=== PATIENT | female | born 1980 | race Caucasian/White ===

== ENCOUNTER 2016-12-30 06:07 | Day surgery (SDC) | payer BC ==
[2016-12-30] MEDS ORDERED: Lactated Ringers 1,000 ML IV SCH (06:30)
[2016-12-30] MEDS ORDERED: DIPRIVAN 200 MG/20 ML IV ONE (07:49)
[2016-12-30] MEDS ORDERED: Versed 2 MG/2 ML Injection IV ONE (07:49)
[2016-12-30 08:56] VITALS: BP 131/86; PULSE 68; O2SAT 99
--- NOTE | 2016-12-30 09:04 | OP ---
SURGERY DATE: 12/30/16 SURGERY TIME: 716 PREOPERATIVE DIAGNOSIS: 1. EPIGASTRIC PAIN. POSTOPERATIVE DIAGNOSIS: 1. MILD GASTRITIS. PROCEDURE: 1. Esophagogastroduodenoscopy with biopsy. SURGEON: Dr. Connors. ANESTHESIA: MAC, medications given by the Anesthesia Department. BRIEF HISTORY: The patient is a 36 y/o WF patient presenting now for endoscopic evaluation due to the presence of epigastric pain. The patient was noted to be taking ibuprofen routinely. The patient was felt to need to have endoscopic evaluation. She was appraised of the risks of the procedure including the risk of perforation, phlebitis, untoward reaction to medication, bleeding, and missed lesions. The patient verbalized her understanding and desired to have the procedure performed. DESCRIPTION OF PROCEDURE: The patient was given the medications by the Anesthesia Department. She had continuous pulse oximetry, ECG monitoring, intermittent BP monitoring, and end tidal CO2 monitoring during the examination. She was placed in the left lateral decubitus position. A bite block was placed and the flexible Olympus gastroscope was used to intubate the oropharynx. A view of the larynx was obtained and was normal. The scope was easily introduced in the esophagus which appeared to be normal throughout its length. The stomach was entered where normal gastric rugal folds were seen and these distended nicely with the insufflation of air. The scope was passed along the greater curvature of the stomach to the antrum. The pylorus was encountered and intubated. The duodenum was inspected and found to be normal. The scope was withdrawn towards the stomach again. A retroflex view was obtained of the lesser curvature, fundus, and cardia regions of the stomach and these appeared to be normal. The scope was then redirected towards the gastric antrum. Biopsies were obtained to rule out the presence of Helicobacter pylori type organisms. The scope was then removed from the patient who tolerated the procedure well and was sent back to outpatient recovery in good condition.
== END 2016-12-30 08:40 | disposition home or self-care (01) ==
LOC: SDC 06:07
PROVIDERS: ATTEND Family Medicine
PROC: 0DB68ZX Excision of Stomach, Via Natural or Artificial Opening Endoscopic, Diagnostic (ICD-10-PCS; principal; 2016-12-30)
DX: K29.70 Gastritis, unspecified, without bleeding (principal); R10.13 Epigastric pain
CPT/HCPCS: 00740; 36415; 88305; 88312; J2250; J2704

== ENCOUNTER 2017-11-06 09:00 | Observation (INO) | payer BC ==
[2017-11-06] MEDS ORDERED: MEFOXIN 2 GM PREMIX** 2 GM/50 ML ML IV ONE (09:01)
[2017-11-06] MEDS ORDERED: TORAdol 30 mg Injection IV ONE (09:25)
[2017-11-06] MEDS ORDERED: Sodium Chloride 0.9% 1000 ML 1,000 ML IV STA (09:25)
[2017-11-06] MEDS ORDERED: Zofran 4 MG/2 ML VIAL IV ONE ×2 (09:25→14:14)
--- NOTE | 2017-11-06 09:29 | ERPHSYRPT ---
- History of Present Illness Time Seen by Provider: 11/06/17 09:22 Historian: patient Exam Limitations: no limitations Patient Subjective Stated Complaint: Pt states "I started to have lower right abdominal pain last night and this morning it is worse and my right lower back now hurts." Triage Nursing Assessment: Pt alert and oriented X 3, skin pwd. Pt ambulates with an upright steady gait, able to speak in clear full sentences. pt has tenderness noted to right lower quadrant on palpation and release Physician History: 37-year-old white female arrives with complaint of right lower quadrant pain radiating to her back nausea symptoms since last night. Patient apparently presented to the [facility] and was referred to the emergency room. Past medical history includes gastritis. Past surgical history includes tubal ligation. Timing/Duration: yesterday Activities at Onset: none Quality: cramping, sharpness Abdominal Pain Onset Location: RLQ Pain Radiation: back Severity of Pain-Max: moderate Severity of Pain-Current: moderate Modifying Factors: Improves With: other (nausea). Worsens With: analgesics, antacids, breathing, coughing, defecating, eating, exercise, lying down, movement, palpation, rest, urinating, vomiting, position, walking Associated Symptoms: back (pain radiates to the right lower back), nausea, No chest pain, No diaphoresis, No diarrhea, No fever/chills, No fatigue, No headache, No heartburn, No loss of appetite, No neck pain, No rash, No shortness of breath, No syncope, No vomiting, No weakness Previous symptoms: no prior history Allergies/Adverse Reactions: amoxicillin Allergy (Severe, Verified 11/06/17 09:20) Swelling Home Medications: Ibuprofen 600 mg PO BID PRN PRN 12/30/16 [History] Hx Tetanus, Diphtheria Vaccination/Date Given: No Hx Influenza Vaccination/Date Given: No Hx Pneumococcal Vaccination/Date Given: No Immunizations Up to Date: Yes - Review of Systems Constitutional: No Fever, No Chills Eyes: No Symptoms Ears, Nose, & Throat: No Symptoms Respiratory: No Cough, No Dyspnea Cardiac: No Chest Pain, No Edema, No Syncope Abdominal/Gastrointestinal: Abdominal Pain (right lower quadrant pain), Nausea, No Vomiting, No Diarrhea, No Constipation, No Hematemesis, No Hematochezia, No Melena, No Dysphagia, No Appetite Changes Genitourinary Symptoms: No Dysuria, No Frequency, No Hematuria, No Hesitancy, No Incontinence, No Urgency, No Urinary Retention, No Flank Pain, No Menorrhagia , No , No Vaginal Bleeding, No Vaginal Discharge, No Vaginal Itching Musculoskeletal: Back Pain (pain radiates to right lower back), No Arthralgias, No Neck Pain, No Deformity, No Fall, No Injury, No Joint Redness, No Joint Pain , No Joint Swelling, No Myalgias Skin: No Rash Neurological: No Dizziness, No Focal Weakness, No Sensory Changes Psychological: No Symptoms Endocrine: No Symptoms All Other Systems: Reviewed and Negative - Past Medical History Pertinent Past Medical History: Yes Neurological History: No Pertinent History ENT History: No Pertinent History Cardiac History: No Pertinent History Respiratory History: No Pertinent History Endocrine Medical History: No Pertinent History Musculoskeletal History: No Pertinent History GI Medical History: Other History: No Pertinent History Psycho-Social History: No Pertinent History Female Reproductive Disorders: No Pertinent History Other Medical History: abd pain, nausea - Past Surgical History Past Surgical History: Yes Neuro Surgical History: No Pertinent History Cardiac: No Pertinent History Respiratory: No Pertinent History Gastrointestinal: No Pertinent History Genitourinary: No Pertinent History Musculoskeletal: No Pertinent History Female Surgical History: Tubal Ligation - Social History Smoking Status: Never smoker Exposure to second hand smoke: Yes Drug Use: none Patient Lives Alone: No - Female History Hx Last Menstrual Period: 10/08/2017 Hx Now: No - Nursing Vital Signs Nursing Vital Signs: Initial Vital Signs Temperature 97.6 F 11/06/17 09:09 Pulse Rate 99 H 11/06/17 09:09 Respiratory Rate 18 11/06/17 09:09 Blood Pressure 140/85 11/06/17 09:09 O2 Sat by Pulse Oximetry 98 11/06/17 09:09 Pain Scale Pain Intensity 4 - Physical Exam General Appearance: mild distress, alert Eye Exam: PERRL/EOMI, eyes nml inspection Ears, Nose, Throat Exam: normal ENT inspection, pharynx normal, moist mucous membranes Neck Exam: normal inspection, non-tender, supple, full range of motion Respiratory Exam: normal breath sounds, lungs clear, No respiratory distress Cardiovascular Exam: regular rate/rhythm, normal heart sounds Gastrointestinal/Abdomen Exam: soft, tenderness (right lower quadrant tenderness ), No normal bowel sounds, No distention, No mass, No guarding, No ecchymosis, No pulsatile mass, No rebound, No hernia, No hepatomegaly, No organomegaly, No splenomegaly Back Exam: normal inspection, normal range of motion, No CVA tenderness, No vertebral tenderness Extremity Exam: normal inspection, normal range of motion, pelvis stable Neurologic Exam: alert, oriented x 3, cooperative, normal mood/affect, nml cerebellar function, sensation nml, No motor deficits Skin Exam: normal color, warm, dry SpO2 Interpretation: normal (98%) SpO2: 98 Oxygen Delivery: Room Air - Course Nursing assessment & vital signs reviewed: Yes - CT Exams Abdomen/Pelvis CT Interpretation: Discussed w/radiologist (acute appendicitis no perforation tiny appendicolith) Ordered Tests: Active Orders 24 hr Category Date Time Status IV Insertion STAT Care 11/06/17 09:25 Active ABDOMEN AND PELVIS W CONTRAST [CT] Stat Exams 11/06/17 10:08 Completed AMYLASE Stat Lab 11/06/17 09:30 Completed CBC W DIFF Stat Lab 11/06/17 09:30 Completed CMP Stat Lab 11/06/17 09:30 Completed HCG QUALITATIVE,SERUM Stat Lab 11/06/17 09:30 Completed LIPASE Stat Lab 11/06/17 09:30 Completed UA W/ MICROSCOPIC Stat Lab 11/06/17 09:30 Completed Medication Summary Discontinued Medications Generic Name Dose Route Start Last Admin Trade Name Freq PRN Reason Stop Dose Admin Bupivacaine HCl Confirm 11/06/17 12:08 Sensorcaine 0.25% 10 Ml Administered 11/06/17 12:09 Dose 10 ml .ROUTE .STK-MED ONE Sodium Chloride 1,000 mls @ 999 mls/hr 11/06/17 09:25 11/06/17 09:34 Sodium Chloride 0.9% 1000 Ml IV 11/06/17 10:25 999 mls/hr .Q1H1M STA Administration Sodium Chloride Confirm 11/06/17 09:33 Sodium Chloride 0.9% 1000 Ml Administered 11/06/17 09:34 Dose 1,000 mls @ ud .ROUTE .STK-MED ONE Cefoxitin Sodium 2 gm in 50 mls @ ud 11/06/17 09:01 Mefoxin 2 Gm Premix IV 11/06/17 09:02 .STK-MED ONE Lactated Ringer's Confirm 11/06/17 11:40 Lactated Ringers Administered 11/06/17 11:41 Dose 1,000 mls @ ud IV .STK-MED ONE Lactated Ringer's Confirm 11/06/17 12:08 Lactated Ringers Administered 11/06/17 12:09 Dose 1,000 mls @ ud IV .STK-MED ONE Ketorolac Tromethamine 30 mg 11/06/17 09:25 11/06/17 09:34 Toradol 30 Mg Injection IV 11/06/17 09:26 30 mg STAT ONE Administration Ketorolac Tromethamine Confirm 11/06/17 09:33 Toradol 30 Mg Injection Administered 11/06/17 09:34 Dose 30 mg .ROUTE .STK-MED ONE Morphine Sulfate 4 mg 11/06/17 10:10 11/06/17 10:38 Morphine Sulfate 4 Mg Inj IV 11/06/17 10:11 4 mg STAT ONE Administration Morphine Sulfate Confirm 11/06/17 10:32 Morphine Sulfate 4 Mg Inj Administered 11/06/17 10:33 Dose 4 mg .ROUTE .STK-MED ONE Ondansetron HCl 4 mg 11/06/17 09:25 11/06/17 09:34 Zofran 4 Mg/2 Ml Vial IV 11/06/17 09:26 4 mg STAT ONE Administration Ondansetron HCl Confirm 11/06/17 09:33 Zofran 4 Mg/2 Ml Vial Administered 11/06/17 09:34 Dose 4 mg .ROUTE .STK-MED ONE Lab/Rad Data: Laboratory Result Diagrams 11/06/17 09:30 11/06/17 09:30 Laboratory Results 11/06/17 11/06/17 11/06/17 Range/Units 09:30 09:30 09:30 WBC 14.1 H (4.0-10.5) K/mm3 RBC 4.30 (4.1-5.4) M/mm3 Hgb 13.3 (12.0-16.0) gm/dl Hct 39.8 (35-47) % MCV 92.6 (78-100) fl MCH 30.9 (26-32) pg MCHC 33.4 (32-36) g/dl RDW 12.7 (11.5-14.0) % Plt Count 233 (150-450) K/mm3 MPV 10.9 H (6-9.5) fl Gran % 77.3 H (36.0-66.0) % Lymphocytes % 9.6 L (24.0-44.0) % Monocytes % 9.0 (0.0-12.0) % Eosinophils % 4.0 (0.00-5.0) % Basophils % 0.1 (0.0-0.4) % Basophils # 0.02 (0-0.4) Sodium 137 (136-145) mEq/L Potassium 4.6 (3.5-5.1) mEq/L Chloride 103 (98-107) mEq/L Carbon Dioxide 27.1 (21-32) mEq/L Anion Gap 11.7 (5-15) MEQ/L BUN 16 (9-20) mg/dL Creatinine 0.77 (0.55-1.30) mg/dl Estimated GFR > 60 ML/MIN Glucose 105 (70-110) MG/DL Calcium 9.0 (8.5-10.1) mg/dL Total Bilirubin 0.70 (0.2-1.0) mg/dL AST 19 (15-37) U/L ALT 21 (12-78) U/L Alkaline Phosphatase 97 (46-116) U/L Serum Total Protein 7.6 (6.4-8.2) gm/dL Albumin 3.6 (3.4-5.0) g/dL Amylase 64 (25-115) U/L Lipase 163 (73-393) U/L Serum , Qual NEGATIVE (Negative) Ur Collection Type Urine Color (YELLOW) Urine Appearance (CLEAR) Urine pH (5-6) Ur Specific [place] (1.005-1.025) Urine Protein (Negative) Urine Ketones (NEGATIVE) Urine Blood (0-5) Chago/ul Urine Nitrite (NEGATIVE) Urine Bilirubin (NEGATIVE) Urine Urobilinogen (0-1) mg/dL Ur Leukocyte Esterase (NEGATIVE) Urine Microscopic RBC (0-2) /HPF Urine Microscopic WBC (0-5) /HPF Ur Epithelial Cells (FEW) /HPF Urine Bacteria (NEGATIVE) /HPF Urine Mucus (NEGATIVE) /HPF Urine Culture Reflexed (NO) Urine Glucose (NEGATIVE) mg/dL Specimen Received 11/06/17 Range/Units 09:30 WBC (4.0-10.5) K/mm3 RBC (4.1-5.4) M/mm3 Hgb (12.0-16.0) gm/dl Hct (35-47) % MCV (78-100) fl MCH (26-32) pg MCHC (32-36) g/dl RDW (11.5-14.0) % Plt Count (150-450) K/mm3 MPV (6-9.5) fl Gran % (36.0-66.0) % Lymphocytes % (24.0-44.0) % Monocytes % (0.0-12.0) % Eosinophils % (0.00-5.0) % Basophils % (0.0-0.4) % Basophils # (0-0.4) Sodium (136-145) mEq/L Potassium (3.5-5.1) mEq/L Chloride (98-107) mEq/L Carbon Dioxide (21-32) mEq/L Anion Gap (5-15) MEQ/L BUN (9-20) mg/dL Creatinine (0.55-1.30) mg/dl Estimated GFR ML/MIN Glucose (70-110) MG/DL Calcium (8.5-10.1) mg/dL Total Bilirubin (0.2-1.0) mg/dL AST (15-37) U/L ALT (12-78) U/L Alkaline Phosphatase (46-116) U/L Serum Total Protein (6.4-8.2) gm/dL Albumin (3.4-5.0) g/dL Amylase (25-115) U/L Lipase (73-393) U/L Serum , Qual (Negative) Ur Collection Type CCMS Urine Color YELLOW (YELLOW) Urine Appearance HAZY (CLEAR) Urine pH 8.0 (5-6) Ur Specific [place] 1.005 (1.005-1.025) Urine Protein NEGATIVE (Negative) Urine Ketones NEGATIVE (NEGATIVE) Urine Blood 5-10 (0-5) Chago/ul Urine Nitrite NEGATIVE (NEGATIVE) Urine Bilirubin NEGATIVE (NEGATIVE) Urine Urobilinogen NORMAL (0-1) mg/dL Ur Leukocyte Esterase NEGATIVE (NEGATIVE) Urine Microscopic RBC 0-2 (0-2) /HPF Urine Microscopic WBC 0-2 (0-5) /HPF Ur Epithelial Cells FEW (FEW) /HPF Urine Bacteria FEW (NEGATIVE) /HPF Urine Mucus SLIGHT (NEGATIVE) /HPF Urine Culture Reflexed NO (NO) Urine Glucose NEGATIVE (NEGATIVE) mg/dL Specimen Received 92911/06/17 - Progress Progress: improved Progress Note: 11/06/17 11:09 37-year-old white female with complaint of right lower quadrant pain since last night. Patient with acute appendicitis on CT no perforation. Call is placed to the surgery. 11/06/17 11:33 Dr. Durham is coming down to see the patient Will plan to take patient to surgery. - Departure Time of Disposition: 11:32 Departure Disposition: Observation Clinical Impression: Right lower quadrant pain Acute appendicitis Qualifiers: Acute appendicitis type: unspecified acute appendicitis type Qualified Code(s) : K35.80 - Unspecified acute appendicitis Condition: Fair Critical Care Time: No Referrals: MARTHA JAMES [Primary Care Provider] -
[2017-11-06] MEDS ORDERED: Sodium Chloride 0.9% 1000 ML 1,000 ML ONE (09:33)
[2017-11-06] MEDS ORDERED: TORAdol 30 mg Injection ONE (09:33)
[2017-11-06] MEDS ORDERED: Zofran 4 MG/2 ML VIAL ONE ×2 (09:33→13:15)
[2017-11-06 09:37] LABS: Bilirubin NEGATIVE (NEGATIVE); COMPLETE URINE MICROSCOPIC? YES; Collection Type CCMS; Glucose NEGATIVE (NEGATIVE); Leukocyte Esterase NEGATIVE (NEGATIVE)
[2017-11-06 09:42] LABS: BASOPHIL % 0.1 % (0.0-0.4); Granulocytes % 77.3 % (36.0-66.0); Lymphocytes % 9.6 % (24.0-44.0); Mean Cell Volume 92.6 fl (78-100); Mean Corpuscular Hemoglobin 30.9 pg (26-32); Mean Platelet Volume 10.9 fl (6-9.5); Platelet Count 233 K/mm3 (150-450); Red Cell Distribution Width 12.7 % (11.5-14.0); White Blood Count 14.1 K/mm3 (4.0-10.5)
[2017-11-06 09:59] LABS: ALBUMIN 3.6 g/dL (3.4-5.0); ALKALINE PHOSPHATASE 97 U/L (46-116); ANION GAP 11.7 MEQ/L (5-15); BLOOD UREA NITROGEN 16 mg/dL (9-20); CHLORIDE 103 mEq/L (98-107); Carbon Dioxide 27.1 mEq/L (21-32); Glucose 105 MG/DL (70-110); LIPASE 163 U/L (73-393); Potassium 4.6 mEq/L (3.5-5.1); SGOT/AST 19 U/L (15-37); SGPT/ALT 21 U/L (12-78); SODIUM 137 mEq/L (136-145); Total Protein 7.6 gm/dL (6.4-8.2)
[2017-11-06 10:07] LABS: Bacteria FEW /HPF (NEGATIVE); Epithelial Cells FEW /HPF (FEW); Mucus SLIGHT /HPF (NEGATIVE); WBC 0-2 /HPF (0-5)
[2017-11-06 10:08] LABS: ADD URINE CULTURE? NO (NO)
[2017-11-06] MEDS ORDERED: MORPHINE SULFATE 4 MG INJ IV ONE (10:10)
[2017-11-06] MEDS ORDERED: MORPHINE SULFATE 4 MG INJ ONE (10:32)
--- NOTE | 2017-11-06 11:12 | XRAY ---
Indication: Right lower quadrant pain. Multiple contiguous axial images obtained through the abdomen and pelvis using 80 cc Isovue 370 contrast only. Comparison: None Lung bases demonstrates mild bibasilar dependent atelectasis. Heart is not enlarged. Noncontrasted stomach and bowel loops appear nonobstructed. Appendix is prominent up to 13 mm in diameter with marked periappendiceal stranding favoring acute appendicitis. 5 mm distal appendicolith and a few subcentimeter reactive mesenteric nodes. No free fluid/air. Remaining liver, gallbladder, pancreas, spleen, adrenal glands, kidneys, ureters, bladder, uterus, and aorta appear unremarkable. No pathologic retroperitoneal lymphadenopathy. Osseous structures intact. Impression: CT findings as detailed favoring acute appendicitis with tiny appendicolith. No perforation. Comment: Telephone report was given to Dr. Solorio in the ER at 1105 hrs. on November 06, 2017. CT DI 27.66
[2017-11-06] MEDS ORDERED: Lactated Ringers 1,000 ML IV ONE ×2 (11:40→12:08)
[2017-11-06] MEDS ORDERED: Sensorcaine 0.25% 10 ML ONE (12:08)
[2017-11-06] MEDS ORDERED: DILAUDID 2 MG INJECTION ONE (13:20)
[2017-11-06] MEDS ORDERED: Phenergan 25 MG INJ ONE (13:30)
[2017-11-06] MEDS ORDERED: Levofloxacin 500MG/100ML D5W 500 MG/100 ML BAG IV ONE (14:01)
[2017-11-06] MEDS ORDERED: CLINDAMYCIN-D5W 600 MG/50 ML*** 600 MG/50 ML BAG IV ONE (14:01)
[2017-11-06] MEDS ORDERED: Decadron 4 MG INJ IV ONE (14:14)
[2017-11-06] MEDS ORDERED: TORAdol 30 mg Injection IJ ONE (14:14)
[2017-11-06] MEDS ORDERED: BRIDION 200MG/2ML IV ONE (14:14)
[2017-11-06] MEDS ORDERED: DIPRIVAN 200 MG/20 ML IV ONE (14:14)
[2017-11-06] MEDS ORDERED: Quelicin Fliptop 200 MG/10 ML IJ ONE (14:14)
[2017-11-06] MEDS ORDERED: SUBLIMAZE 100 MCG/2 ML IV ONE (14:14)
[2017-11-06] MEDS ORDERED: Zemuron 100 MG/10 ML IJ ONE (14:14)
[2017-11-06] MEDS ORDERED: FEVERALL 650 MG RC PRN (14:24)
[2017-11-06] MEDS ORDERED: Zofran 4 MG/2 ML VIAL IV PRN (14:25)
[2017-11-06] MEDS ORDERED: MORPHINE SULFATE 2 MG INJ IV PRN (14:27)
[2017-11-06] MEDS ORDERED: MORPHINE SULFATE 4 MG INJ IV PRN (14:27)
[2017-11-06] MEDS: D5W/0.45NS W/ 20mEq KCl 1000 ML 1,000 ML IV SCH (15:27)
[2017-11-06] MEDS: NORCO 5/325 MG PO PRN ×2 (17:48→21:56)
[2017-11-06] MEDS ORDERED: Requip 0.5 MG ONE (21:32)
[2017-11-06] MEDS ORDERED: MYSOLINE 50MG ONE (21:32)
[2017-11-06] MEDS ORDERED: Travatan 0.004% Opth Sol OP ONE (21:32)
[2017-11-06] MEDS ORDERED: Tamiflu 75MG Capsule PO ONE (21:32)
[2017-11-06] MEDS ORDERED: ZOCOR 20MG ONE (21:33)
[2017-11-06] MEDS: CLINDAMYCIN-D5W 600 MG/50 ML*** 600 MG/50 ML BAG IV SCH (21:49)
[2017-11-06] MEDS ORDERED: Ativan 2 MG/1 ML VIAL ONE (22:02)
[2017-11-07] MEDS: NORCO 5/325 MG PO PRN ×2 (02:39→08:43)
[2017-11-07] MEDS: D5W/0.45NS W/ 20mEq KCl 1000 ML 1,000 ML IV SCH ×2 (02:56→16:14)
[2017-11-07] MEDS: CLINDAMYCIN-D5W 600 MG/50 ML*** 600 MG/50 ML BAG IV SCH ×2 (05:02→13:32)
[2017-11-07 05:35] LABS: Mean Cell Volume 97.3 fl (78-100); Mean Corpuscular Hemoglobin 30.7 pg (26-32); Mean Platelet Volume 10.9 fl (6-9.5); Platelet Count 197 K/mm3 (150-450); Red Blood Count 3.35 M/mm3 (4.1-5.4); Red Cell Distribution Width 12.9 % (11.5-14.0); White Blood Count 10.2 K/mm3 (4.0-10.5)
--- NOTE | 2017-11-07 07:34 | OP ---
SURGERY DATE/TIME: 11/06/2017 1225 PREOPERATIVE DIAGNOSIS: Acute appendicitis. POSTOPERATIVE DIAGNOSIS: Acute appendicitis. PROCEDURE: Laparoscopic appendectomy. SURGEON: Jah Durham M.D. ANESTHESIA: General endotracheal tube. COMPLICATIONS: None. CONDITION: Stable. INDICATION: A patient with the diagnosis of appendicitis from the emergency room. We saw the patient in the emergency room again consistent with appendicitis. Clinical course elevated white blood cell count 14,000, CT scan positive. DESCRIPTION OF PROCEDURE: Immediately taken to surgery. General anesthetic. Routine prep and drape. Veress needle right upper quadrant. A 5 port right upper quadrant. A 5 port left lower quadrant. A 12 port at anterior umbilical area. The appendix was matted down to the cecum. The base was actually nicely seen and was taken with 2.5 vascular cartridge, was well across and well seated. The mesoappendix then taken. Immediately against the mesoappendix there may be some cartridge edge right on the edge of the cecum but it was taken with a staple cartridge and therefore it was sealed regardless. The appendix was not violated. It was placed in a condom bag and removed. The field was totally dry. CO2 was exsufflated. The 12 port had been closed with a hole closure device. Skin closed with 4-0 Vicryl and Steri-Strips. The patient tolerated the procedure satisfactorily.
[2017-11-07] MEDS: ENOXAPARIN SODIUM SQ SCH (08:39)
[2017-11-07] MEDS ORDERED: VENTOLIN 20 ML BOTTLE IH PRN (08:47)
[2017-11-07] MEDS ORDERED: PROVENTIL 2.5 MG/3 ML NEB IH PRN (08:52)
--- NOTE | 2017-11-07 09:14 | XRAY ---
Indication: Chest pressure. Comparison: None PA/lateral chest demonstrates right lower lobe and inferior left upper lobe infiltrate/atelectasis. Remaining heart, lungs, and bony thorax unremarkable. Tiny right subdiaphragmatic free air presumed from recent appendectomy.
--- NOTE | 2017-11-07 09:33 | CONS ---
HISTORY OF PRESENT ILLNESS: This is a 37 year-old patient of mine who presented first to [facility] and then the emergency department with some right lower quadrant pain. She was found to have acute appendicitis and was taken to surgery yesterday. This morning she states that she still has some discomfort in her abdomen but she also reports some chest pressure overnight on and off which she said she did not say much about. She does report a history of asthma. She denies any shortness of breath. No nausea or vomiting. No diaphoresis. No radiation. She reports she had this kind of problem in the past. REVIEW OF SYSTEMS: As noted in the history of present illness. PAST MEDICAL HISTORY: Asthma. PAST SURGICAL HISTORY: Appendectomy on this hospitalization. Tubal ligation. MEDICATIONS: Ibuprofen 600 mg p.o. b.i.d. ALLERGIES: AMOXICILLIN. SOCIAL HISTORY: She is and lives with her . She does not smoke. FAMILY HISTORY: Noncontributory. PHYSICAL EXAMINATION: VITAL SIGNS: Temperature current 97.8F, temperature max 98.3F, heart rate 67 to 99, respiratory rate 16 to 18, blood pressure 92 to 140 over 51 to 85. Oxygen saturation 94 to 98% on room air to 2 liters nasal cannula. GENERAL: The patient is a pleasant lady lying in bed in no acute distress. CVS: She has a regular rate and rhythm. No murmurs, gallops or rubs. CHEST: Clear to auscultation bilaterally. No crackles or wheezes. ABDOMEN: Normal bowel sounds. She has a dressing over her incision. EXTREMITIES: No clubbing, cyanosis or edema. SKIN: Warm, dry and intact. LABORATORY DATA AND TESTS: Her hemoglobin was 10.3. CMP yesterday was normal. UA yesterday was negative. Please see the report on CT of the abdomen and pelvis which was read as concerning for acute appendicitis. ASSESSMENT AND PLAN: 1) CHEST PRESSURE: Will ask for an EKG, a troponin to be added to her morning labs. Try an Albuterol treatment as she has history of asthma. 2) STATUS POST APPENDECTOMY: Management per the surgeon. 3) ANEMIA. Most likely due to blood loss from her surgery as her hemoglobin was normal on admission. If she is still here tomorrow will recheck that.
[2017-11-07] MEDS: Levofloxacin 500 MG Tablet PO SCH (10:09)
[2017-11-07] MEDS: TYLENOL 325 MG PO PRN ×2 (13:32→21:18)
[2017-11-08] MEDS: D5W/0.45NS W/ 20mEq KCl 1000 ML 1,000 ML IV SCH (03:24)
[2017-11-08 05:39] LABS: BASOPHIL % 0.3 % (0.0-0.4); Eosinophil % 8.1 % (0.00-5.0); Granulocytes % 48.7 % (36.0-66.0); Lymphocytes % 34.2 % (24.0-44.0); Mean Cell Volume 97.6 fl (78-100); Mean Corpuscular Hemoglobin 30.6 pg (26-32); Mean Platelet Volume 10.7 fl (6-9.5); Monocytes % 8.7 % (0.0-12.0); Platelet Count 191 K/mm3 (150-450); Red Cell Distribution Width 12.9 % (11.5-14.0); White Blood Count 6.3 K/mm3 (4.0-10.5)
[2017-11-08] MEDS: TYLENOL 325 MG PO PRN (06:36)
[2017-11-08] MEDS: ENOXAPARIN SODIUM SQ SCH (09:59)
[2017-11-08] MEDS: Levofloxacin 500 MG Tablet PO SCH (09:59)
--- NOTE | 2017-11-08 10:34 | PCM.DCORD ---
- Discharge Discharge Date: 11/08/17 Disposition: Home, Self-Care Condition: Fair Prescriptions: New Levofloxacin [Levofloxacin 500 MG Tablet] 500 mg PO DAILY #5 tablet Hydrocodone Bit/Acetaminophen [[place] 5-325 Tablet] 1 each PO Q4H PRN #12 tablet MDD 6 PRN Reason: Pain Continue Ibuprofen 600 mg PO BID PRN PRN PRN Reason: Pain Additional Instructions: Follow up with at [facility] on 11/13/17@ 1:25pm Follow up with: RIP WORLEY [ACTIVE STAFF] - 11/13/17 1:25 pm () MARTHA JAMES [Primary Care Provider] - 11/18/17 1:15 pm Forms: Patient Portal Information
--- NOTE | 2017-11-08 10:35 | PCM.DS ---
Discharge Summary Date of Admission: 11/06/17 14:00 Date of Discharge: 11/08/17 Admitting Physician: MARTHA JAMES Consults: Consults on Case 11/06/17 15:26 Consult Physician ROUTINE Primary Care Provider: MARTHA JAMES Allergies Allergies amoxicillin Allergy (Severe, Verified 11/06/17 09:20) Swelling Hospital Summary - Hospital Course Hospital Course: she presented with worsening rlq pain ct showed appendicitis and she had luekocytosis. SHe was taken to OR by Dr. Emmanuelle Durham and had uncomplicated appendectomy. She did have coughing and some chills prior to the abdominal pain and post op had some chest pain and coughing and CXR showed possible pneumonia vs atelectasis and she was started on levoquin by her physician. She improved and was doing well today. She will complete the coarse of levaquin to cover for the pneumonia and continue to use the IS. She is ambulating and has f/u with general surgery for post op visit. Pain control is adequate at this time. We discussed the risk of narcotic pain medications and she was give a short supply for her severe post op pain and continue use ibuprofen for the moderate pain. - Vitals & Intake/Output Vital Signs: Vital Signs Temperature 98.4 F 11/08/17 06:51 Pulse Rate 88 11/08/17 07:00 Respiratory Rate 18 11/08/17 08:00 Blood Pressure 137/84 11/08/17 06:51 O2 Sat by Pulse Oximetry 96 11/08/17 07:00 Oxygen-Last Documented O2 Percentage 2 Liters = 28% Intake & Output: Intake & Output 11/05/17 11/06/17 11/07/17 11/08/17 11:59 11:59 11:59 11:59 Intake Total 2054 3075 Output Total 1800 3400 Balance 254 -325 Weight 105.778 kg - Lab Result Diagrams: 11/08/17 05:08 11/06/17 09:30 Lab Results-Last 24 Hrs: Lab Results-Last 24 Hours 11/08/17 Range/Units 05:08 WBC 6.3 (4.0-10.5) K/mm3 RBC 3.30 L (4.1-5.4) M/mm3 Hgb 10.1 L (12.0-16.0) gm/dl Hct 32.2 L (35-47) % MCV 97.6 (78-100) fl MCH 30.6 (26-32) pg MCHC 31.4 L (32-36) g/dl RDW 12.9 (11.5-14.0) % Plt Count 191 (150-450) K/mm3 MPV 10.7 H (6-9.5) fl Gran % 48.7 (36.0-66.0) % Lymphocytes % 34.2 (24.0-44.0) % Monocytes % 8.7 (0.0-12.0) % Eosinophils % 8.1 H (0.00-5.0) % Basophils % 0.3 (0.0-0.4) % Basophils # 0.02 (0-0.4) - Radiology Exams Ordered Rad Exams-Entire Visit: Radiology Procedures Category Date Time Status CHEST 2 VIEWS (PA AND LAT) Routine Exams 11/07/17 09:04 Completed - Procedures and Test Procedures and Tests throughout Hospitalization: Therapy Orders & Screens 11/06/17 15:04 Oxygen NASAL CANNULA 2 lpm Comment: Diagnosis: APPENDECTOMY 11/07/17 08:46 EKG ROUTINE Comment: Diagnosis: APPENDECTOMY 11/07/17 08:52 Respiratory Nebulizer UD Comment: Diagnosis: APPENDECTOMY 11/07/17 14:24 Incentive Spirometry Assessmen TID Comment: Diagnosis: APPENDECTOMY Discharge Exam General Appearance: no apparent distress, alert Neurologic Exam: alert, oriented x 3, cooperative, normal mood/affect, nml cerebellar function, sensation nml, No motor deficits Skin Exam: normal color, warm, dry Eye Exam: PERRL, EOMI, eyes nml inspection Ears, Nose, Throat Exam: normal ENT inspection, pharynx normal, moist mucous membranes Neck Exam: normal inspection, non-tender, supple, full range of motion Respiratory Exam: normal breath sounds, crackles/rales (right base), No respiratory distress Cardiovascular Exam: regular rate/rhythm, normal heart sounds Gastrointestinal/Abdomen Exam: soft, normal bowel sounds, tenderness (mild clean dry incisions), No mass, No guarding Extremity Exam: normal inspection, normal range of motion Back Exam: normal inspection, normal range of motion, No CVA tenderness, No vertebral tenderness Pelvic Exam: deferred Rectal Exam: deferred Final Diagnosis/Problem List - Final Discharge Diagnosis/Problem (1) Acute appendicitis Status: Acute (2) Pneumonia Status: Acute (3) Postoperative anemia Status: Acute - Discharge Disposition: Home, Self-Care Condition: Fair Prescriptions: New Levofloxacin [Levofloxacin 500 MG Tablet] 500 mg PO DAILY #5 tablet Hydrocodone Bit/Acetaminophen [[place] 5-325 Tablet] 1 each PO Q4H PRN #12 tablet MDD 6 PRN Reason: Pain Continue Ibuprofen 600 mg PO BID PRN PRN PRN Reason: Pain Instructions: Appendectomy Additional Instructions: Follow up with at [facility] on 11/13/17@ 1:25pm Follow up with: RIP DURHAM [ACTIVE STAFF] - 11/13/17 1:25 pm () MARTHA JAMES [Primary Care Provider] - 11/18/17 1:15 pm Forms: Discharge Instructions, Patient Portal Information
[2017-11-08 11:28] VITALS: BP 129/78; PULSE 72; O2SAT 93
== END 2017-11-08 11:55 | disposition home or self-care (01) ==
LOC: ED 09:00 → MED SURG 14:00
PROVIDERS: ADMIT Internal Medicine; ATTEND Internal Medicine
PROC: 0DTJ4ZZ Resection of Appendix, Percutaneous Endoscopic Approach (ICD-10-PCS; principal; 2017-11-06)
DX: K35.80 Unspecified acute appendicitis (principal); J45.909 Unspecified asthma, uncomplicated; J18.9 Pneumonia, unspecified organism; D62 Acute posthemorrhagic anemia
CPT/HCPCS: 00840; 36000; 36415; 71020; 74177; 80053; 81000; 82150; 83690; 84484; 84703; 85025; 85027; 93005; 94640; 94760; 96360; 96374; 96375; 99140; 99285; G0378; J0330; J0694; J1100; J1170; J1650; J1885; J1956; J2060; J2270; J2405; J2550; J2704; J3010; A9270-GY

== ENCOUNTER 2020-12-23 10:16 | Emergency (ER) | payer BC, MEDICARE ==
[2020-12-23] MEDS ORDERED: Hydromorphone 1 mg/ml Injection IM ONE (10:44)
[2020-12-23] MEDS ORDERED: Phenergan 25 MG INJ IM ONE (10:44)
--- NOTE | 2020-12-23 10:44 | ERPHSYRPT ---
- History of Present Illness Time Seen by Provider: 12/23/20 10:20 Source: patient Exam Limitations: no limitations Patient Subjective Stated Complaint: PT states "I started to get a miograine on fri and it has not gone away. I am naueated and my head is killing me." Triage Nursing Assessment: PT presented alert and oriented X 3, skin pwd Pt ambulates with an upright steady gait, able to speak in clear full sentences pt in no apparent respiratory distress. PT squinting eyes and shying away from light. Physician History: This is a 40-year-old white female who has no prior history of any migraine headaches and presents with a 3-day history of worst headache she is ever had. She denies head trauma. Headache pain is not responding to Tylenol, ibuprofen or Excedrin. She has associated nausea but no other associated symptoms. Timing/Duration: day(s) (3) Quality: aching, throbbing Head Pain Location: global Severity of Pain-Max: moderate Severity of Pain-Current: moderate Recent Head Trauma: no recent headache/trauma Modifying Factors: Improves With: exposure to light, noise Associated Symptoms: nausea/vomiting Previous symptoms: no prior history Allergies/Adverse Reactions: amoxicillin Allergy (Severe, Verified 11/06/17 09:20) Swelling Home Medications: No Reportable Medications [No Reported Medications] 12/23/20 [History] Hx Tetanus, Diphtheria Vaccination/Date Given: No Hx Influenza Vaccination/Date Given: No Hx Pneumococcal Vaccination/Date Given: No Immunizations Up to Date: Yes Travel Risk - International Travel Have you traveled outside of the country in past 3 weeks: No - Coronavirus Screening Are you exhibiting any of the following symptoms?: No Close contact with a COVID-19 positive Pt in past 14-21 Days: No - Review of Systems Constitutional: No Symptoms Eyes: No Symptoms Ears, Nose, & Throat: No Symptoms Respiratory: No Symptoms Cardiac: No Symptoms Abdominal/Gastrointestinal: No Symptoms Genitourinary Symptoms: No Symptoms Musculoskeletal: No Symptoms Neurological: Headache Psychological: No Symptoms Endocrine: No Symptoms Hematologic/Lymphatic: No Symptoms Immunological/Allergic: No Symptoms All Other Systems: Reviewed and Negative - Past Medical History Pertinent Past Medical History: Yes Neurological History: No Pertinent History ENT History: No Pertinent History Cardiac History: No Pertinent History Respiratory History: No Pertinent History Endocrine Medical History: No Pertinent History Musculoskeletal History: No Pertinent History GI Medical History: Other History: No Pertinent History Psycho-Social History: No Pertinent History Female Reproductive Disorders: No Pertinent History Other Medical History: abd pain, nausea - Past Surgical History Past Surgical History: Yes Neuro Surgical History: No Pertinent History Cardiac: No Pertinent History Respiratory: No Pertinent History Gastrointestinal: No Pertinent History Genitourinary: No Pertinent History Musculoskeletal: No Pertinent History Female Surgical History: Tubal Ligation - Social History Smoking Status: Never smoker Exposure to second hand smoke: Yes Drug Use: none Patient Lives Alone: No - Female History Hx Last Menstrual Period: 12/13/2020 Hx Now: No - Nursing Vital Signs Nursing Vital Signs: Initial Vital Signs Temperature 97.7 F 12/23/20 10:26 Pulse Rate 79 12/23/20 10:26 Respiratory Rate 20 12/23/20 10:26 Blood Pressure 131/87 12/23/20 10:26 O2 Sat by Pulse Oximetry 99 12/23/20 10:26 Pain Scale Pain Intensity 9 - Physical Exam General Appearance: mild distress, alert, anxiety, obese Eye Exam: PERRL/EOMI, eyes nml inspection Ears, Nose, Throat Exam: normal ENT inspection, moist mucous membranes Neck Exam: normal inspection, non-tender, supple, full range of motion Respiratory Exam: normal breath sounds, lungs clear, airway intact, No chest tenderness, No respiratory distress Cardiovascular Exam: regular rate/rhythm, normal heart sounds, normal peripheral pulses Gastrointestinal/Abdominal Exam: soft, normal bowel sounds, No tenderness Back Exam: normal inspection, normal range of motion, No CVA tenderness, No vertebral tenderness Extremity Exam: normal inspection, normal range of motion, pelvis stable Mental Status Exam: alert, oriented x 3, 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 Exam: normal hearing, normal speech, PERRL Coordination/Gait Exam: normal finger to nose, normal gait, normal cerebellar function Motor/Sensory Exam: no motor deficit, no sensory deficit, no pronator drift Skin Exam: normal color, warm, dry Lymphatic Exam: No adenopathy SpO2 Interpretation: normal SpO2: 99 O2 Delivery: Room Air - Course Nursing assessment & vital signs reviewed: Yes Ordered Tests: Active Orders 24 hr Category Date Time Status HEAD WITHOUT CONTRAST [CT] Stat Exams 12/23/20 10:44 Taken Medication Summary Discontinued Medications Generic Name Dose Route Start Last Admin Trade Name Freq PRN Reason Stop Dose Admin Hydromorphone HCl 1 mg 12/23/20 10:44 12/23/20 11:09 Hydromorphone 1 Mg/Ml Injection IM 12/23/20 10:45 1 mg STAT ONE Administration Hydromorphone HCl Confirm 12/23/20 11:08 Hydromorphone 1 Mg/Ml Injection Administered 12/23/20 11:09 Dose 1 mg .ROUTE .STK-MED ONE Promethazine HCl 25 mg 12/23/20 10:44 12/23/20 11:09 Phenergan 25 Mg Inj IM 12/23/20 10:45 25 mg STAT ONE Administration Promethazine HCl Confirm 12/23/20 11:07 Phenergan 25 Mg Inj Administered 12/23/20 11:08 Dose 25 mg .ROUTE .STK-MED ONE - Progress Progress: improved, re-examined Air Movement: good Progress Note: 12/23/20 11:45 ct head without contrast no acute intracranial abnormality Blood Culture(s) Obtained: No Antibiotics given: No Counseled pt/family regarding: diagnosis, need for follow-up, rad results - Departure Departure Disposition: Home Clinical Impression: Migraine headache Condition: Stable Critical Care Time: No Referrals: FAREED GARCIA MD [Primary Care Provider] - Additional Instructions: Use Tylenol and ibuprofen for headache pain control. Follow-up with your primary care physician for further management.
[2020-12-23] MEDS ORDERED: Phenergan 25 MG INJ ONE (11:07)
[2020-12-23] MEDS ORDERED: Hydromorphone 1 mg/ml Injection ONE (11:08)
[2020-12-23 11:56] VITALS: BP 118/83; PULSE 65; O2SAT 93
--- NOTE | 2020-12-23 18:14 | XRAY ---
Indication: Migraine headache 3 days. No known injury. Multiple contiguous axial images obtained through the head without contrast. Comparison: None Normal appearing brain parenchyma, ventricles, and bony calvarium. Minimal mucosal thickening both maxillary/ethmoid sinuses. Also partial opacification of the right mastoid air cells. Impression: Paranasal sinus disease. Partial opacification right mastoid air cells presumed inflammatory. Remaining CT head without contrast exam is negative. Comment: Preliminary interpretation was made by [facility]. No critical discrepancy.
== END 2020-12-23 12:05 | disposition home or self-care (01) ==
LOC: ED 10:16
DX: G43.909 Migraine, unspecified, not intractable, without status migrainosus (principal)
CPT/HCPCS: 70450; 96372; 99284; J1170; J2550

== ENCOUNTER 2025-01-19 20:27 | Emergency (ER) | payer BC ==
[2025-01-19 20:34] VITALS: RESP 18; TEMP 97.3; O2SAT 99
[2025-01-19] MEDS ORDERED: BACTRIM DS TABLET PO ONE (20:45)
--- NOTE | 2025-01-19 20:45 | ERPHSYRPT ---
- History of Present Illness Time Seen by Provider: 01/19/25 20:38 Source: patient Exam Limitations: no limitations Physician History: 44-year-old female presents to our ED for evaluation of a dog bite. Patient states her 2 dogs a great Evelio and a [place]ump began to fight. She went to break them up and the [place] accidentally bit her. Both dogs are vaccinated. Injury occurred about 22 hours ago. Patient dressed it with a Band-Aid. Has not taken antibiotics. Patient became concerned when she observed the antibiotic soaked through. Patient is allergic to penicillin. No other injuries reported. No associated symptomology. Patient is unsure about her tetanus. We will look it up and administer it accordingly. Family at bedside. Patient voices no other complaints or concerns at this time. Patient denies foreign body sensation. Patient declined pain medication. Portions of this note were created with voice recognition technology. There may be grammatical, spelling, punctuation or sound alike errors Timing/Duration: yesterday Severity: moderate Associated Symptoms: denies symptoms Allergies/Adverse Reactions: amoxicillin Allergy (Severe, Verified 01/19/25 20:52) Swelling Hx Tetanus, Diphtheria Vaccination/Date Given: No Hx Influenza Vaccination/Date Given: No Hx Pneumococcal Vaccination/Date Given: No - Review of Systems Constitutional: No Symptoms, No Fever, No Chills Eyes: No Symptoms Ears, Nose, & Throat: No Symptoms Respiratory: No Symptoms, No Cough, No Dyspnea Cardiac: No Symptoms, No Chest Pain, No Edema, No Syncope Abdominal/Gastrointestinal: No Symptoms, No Abdominal Pain, No Nausea, No Vomiting, No Diarrhea Genitourinary Symptoms: No Symptoms, No Dysuria Musculoskeletal: No Symptoms, No Back Pain, No Neck Pain Skin: No Symptoms, No Rash Neurological: No Symptoms, No Dizziness, No Focal Weakness, No Sensory Changes Psychological: No Symptoms Endocrine: No Symptoms Hematologic/Lymphatic: No Symptoms Immunological/Allergic: No Symptoms All Other Systems: Reviewed and Negative - Past Medical History Pertinent Past Medical History: Yes Neurological History: No Pertinent History ENT History: No Pertinent History Cardiac History: No Pertinent History Respiratory History: No Pertinent History Endocrine Medical History: No Pertinent History Musculoskeletal History: No Pertinent History GI Medical History: Other History: No Pertinent History Psycho-Social History: No Pertinent History Female Reproductive Disorders: No Pertinent History Other Medical History: abd pain, nausea - Past Surgical History Past Surgical History: Yes Neuro Surgical History: No Pertinent History Cardiac: No Pertinent History Respiratory: No Pertinent History Gastrointestinal: No Pertinent History Genitourinary: No Pertinent History Musculoskeletal: No Pertinent History Female Surgical History: Tubal Ligation - Social History Smoking Status: Never smoker Exposure to second hand smoke: Yes Drug Use: none Patient Lives Alone: No - Nursing Vital Signs Nursing Vital Signs: Initial Vital Signs Temperature 97.3 F 01/19/25 20:32 Pulse Rate 85 01/19/25 20:32 Respiratory Rate 18 01/19/25 20:32 Blood Pressure 124/89 01/19/25 20:32 O2 Sat by Pulse Oximetry 99 01/19/25 20:32 Pain Scale Pain Intensity 6 - Physical Exam General Appearance: no apparent distress, alert Eye Exam: PERRL/EOMI, eyes nml inspection Ears, Nose, Throat Exam: normal ENT inspection, moist mucous membranes Neck Exam: normal inspection, full range of motion Respiratory Exam: normal breath sounds, airway intact, No respiratory distress Cardiovascular Exam: regular rate/rhythm, normal peripheral pulses Gastrointestinal/Abdomen Exam: soft, normal bowel sounds, No tenderness, No mass Back Exam: normal inspection, normal range of motion, No CVA tenderness, No vertebral tenderness Extremity Exam: normal inspection, normal range of motion, pelvis stable, other (There is a 1 cm superficial laceration within its center is a puncture wound. The involved extremities neurovascular tact distally compartments are soft cap refill less than 2 seconds.) Neurologic Exam: alert, oriented x 3, cooperative, normal mood/affect, sensation nml, No motor deficits Skin Exam: normal color, warm, dry, No rash Lymphatic Exam: No adenopathy SpO2 Interpretation: normal SpO2: 99 O2 Delivery: Room Air - Course Nursing assessment & vital signs reviewed: Yes Ordered Tests: Medication Summary Discontinued Medications Generic Name Dose Route Start Last Admin Trade Name Freq PRN Reason Stop Dose Admin Diphtheria/Tetanus/Acell Pertussis 0.5 ml 01/19/25 20:55 01/19/25 21:07 Tdap --Diph,Pertuss(Acell),Tet Vac/Pf 0.5 Ml Vial IM 01/19/25 20:56 0.5 ml .ONCE ONE Administration Diphtheria/Tetanus/Acell Pertussis Confirm 01/19/25 21:05 Tdap --Diph,Pertuss(Acell),Tet Vac/Pf 0.5 Ml Vial Administered 01/19/25 21:06 Dose 0.5 ml IM .STK-MED ONE Trimethoprim/Sulfamethoxazole 1 tab 01/19/25 20:39 01/19/25 20:46 Smz/Tmp Ds Tablet 1 Tablet PO 01/19/25 20:40 1 tab STAT STA Administration Trimethoprim/Sulfamethoxazole Confirm 01/19/25 20:45 Smz/Tmp Ds Tablet 1 Tablet Administered 01/19/25 20:46 Dose 1 tab PO .STK-MED ONE - Progress Progress: improved Progress Note: 44-year-old female presents to emergency department for evaluation of a dog bite. Patient was her 2 dogs from fighting. She was accidentally bitten. Dogs are fully vaccinated. Injury occurred about 22 hours ago. The wound was irrigated by nursing staff. No foreign body observed. Patient denies foreign body sensation. The involved extremities neurovascular tact distally compartments are soft cap refill less than 2 seconds. Tetanus updated. Patient received an oral dose of Bactrim in our ED. Patient is allergic to penicillin. Tetanus updated. Patient received an oral dose of Bactrim in our ED. Patient is allergic to penicillin. A prescription for Bactrim forwarded to patient's pharmacy. Patient declined pain medication. No indication for further workup at this time. Will discharge home. Patient agrees to follow-up with her primary care doctor within 48 hours for reevaluation. Patient voices no other complaints or concerns at this time. Steri-Strip and sterile dressing applied. No suture repair indicated. Portions of this note were created with voice recognition technology. There may be grammatical, spelling, punctuation or sound alike errors Complexity of problem addressed is moderate acute complicated. No critical care time. Complexity of data reviewed and analyzed is none. No specialized testing ordered. Diagnosis made based on history and physical exam. Risk of complication and or risk of morbidity/mortality of patient management is moderate. Patient received an oral dose of Bactrim in our ED. A prescription for the same forwarded to patient's pharmacy. Patient declined pain medication. Vital stable. Time spent to discharge patient is approximately 15 minutes. Plan of care established for shared decision making. No social determinants of health present to impede follow-up. Portions of this note were created with voice recognition technology. There may be grammatical, spelling, punctuation or sound alike errors 01/19/25 21:16 Counseled pt/family regarding: diagnosis, need for follow-up - Departure Departure Disposition: Home Clinical Impression: Dog bite Condition: Stable Critical Care Time: No Referrals: FAREED GARCIA MD [Primary Care Provider] - Follow up/PCP as directed Instructions: Animal Bites ED Additional Instructions: Discharge/Care Plan ERIKA ALEMAN was seen on 01/19/25 in the Emergency Room. The patient was counseled regarding Diagnosis,Lab results, Imaging studies, need for follow up and when to return to the Emergency Room. Prescriptions given: Discharge Note I have spoken with the patient and/or caregivers. I have explained the patient's condition, diagnosis and treatment plan based on the information available to me at this time. I have answered the patient's and/or caregiver's questions and addressed any concerns. The patient and/or caregivers have as good understanding of the patient's diagnosis, condition and treatment plan as can be expected at this point. The vital signs have been stable. The patient's condition is stable and appropriate for discharge from the emergency department. The patient will pursue further outpatient evaluation with the primary care physician or other designated or consulting physician as outlined in the discharge instructions. The patient and/or caregivers are agreeable to this plan of care and follow-up instructions have been explained in detail. The patient and/or caregivers have received these instruction. The patient/and or caregivers are aware that any significant change in condition or worsening of symptoms should prompt an immediate return to this or the closest emergency department or call 911. Prescriptions: Smz/Tmp Ds Tablet [Bactrim Ds Tablet] 1 udtab PO BID 7 Days #14 tablet
[2025-01-19] MEDS: BACTRIM DS TABLET PO STA (20:46)
[2025-01-19] MEDS ORDERED: Adacel Vial IM ONE (21:05)
[2025-01-19] MEDS: Adacel Vial IM ONE (21:07)
[2025-01-19 21:22] VITALS: BP 99/73; PULSE 83
== END 2025-01-19 21:27 | disposition home or self-care (01) ==
LOC: ED 20:27
DX: S80.871A Other superficial bite, right lower leg, initial encounter (principal); W54.0XXA Bitten by dog, initial encounter; Z79.899 Other long term (current) drug therapy; Z23 Encounter for immunization
CPT/HCPCS: 90471; 90715; 99282; 99283; A9270-GY